=== PATIENT | female | born 1980 | race Caucasian/White ===

== ENCOUNTER 2021-05-19 15:06 | Outpatient (REF) | payer OTHER, SELFPAY ==
[2021-05-19 16:58] LABS: Binax Internal Control QC Valid; Binax Lot number: 9864; Binax Now Covid-19 Ag Negative (Negative)
== END 2021-05-19 15:07 | disposition home or self-care (01) ==
LOC: HO.LAB 15:06
PROVIDERS: Visit Provider Internal Medicine
DX: Z20.822 Contact with and (suspected) exposure to COVID-19 (principal)
CPT/HCPCS: 36415; C9803

== ENCOUNTER 2025-02-18 11:05 | Outpatient (AMB) | payer OTHER, SELFPAY ==
--- NOTE | 2025-02-18 11:41 | A.OFFVIS_ITS ---
Intake Visit Reasons: 6m Allergies No Known Allergies Allergy (Verified 02/18/25 11:41) Medication List - Last Reconciled 02/18/25 by Jo Tang CNP levetiracetam 500 mg PO BID sumatriptan succinate mg PO topiramate 25 mg PO BID HPI Comments Details: 44-year-old woman migraine and seizure disorder, who provided her own history st ating that she was diagnosed with hydrocephalus in [place] in 2006 that was treated with a CHILD DAY CARE PROVIDER shunt. Apparently there were many complications leading to infection and shunt was revised multiple times. She was so-so. She had one seizure last month. She got feeling of weakness in legs and arms, and passed out and fell. (She says seizures generally start with feeling of weakness and she is able to sit before it happens, but was unable to sit in time during this episode). Her daughter (who is a nurse) was with her. She came to about 5 minutes later. Speech was slightly confused and she was tired after. No shaking or convulsions noted. No tongue bite or incontinence. She denies any missed doses of medication. Her last seizure was about 3 years ago. She had headache at the time. Headaches were happening about 2-3x/week with photophobia, sonophobia, and nausea. No vomiting. Sleep was up and down. She had some stress. She has 3 children, a 21-year-old daughter (nurse), 19-year-son son, and 8-year-old daughter with autism. [facility] Medical History (Updated 02/18/25 @ 11:44 by Jo Tang CNP) Paresthesia of skin Migraine Seizure disorder Hydrocephalus Surgical History (Updated 12/26/24 @ 09:30 by Raquel Brewer [facility]) S/P CHILD DAY CARE PROVIDER shunt Review of Systems Const Denies chills, Denies daytime sleepiness, Denies difficulty sleeping, Denies fatigue, Denies fever(s), Denies frequent falls, Reports headache(s), Denies increased appetite, Denies poor appetite, Denies snoring, Denies weakness, Denies weight gain and Denies weight loss Eyes Denies loss of vision ENT Denies vertigo, Denies dizziness and Reports headache(s) Card Denies chest pain at rest, Denies chest pain with activity, Denies syncope, Denies leg edema and Denies palpitations Resp Denies snoring GI Denies constipation, Denies heartburn, Denies diarrhea and Denies nausea Denies urinary frequency, Denies urinary incontinence and Denies urinary urgency Musc Denies abnormal gait, Reports numbness and Reports tingling Skin/Breast Denies dry skin and Denies rash Neuro Denies abnormal gait, Denies vertigo, Denies dizziness, Denies syncope, Denies frequent falls, Reports headache(s), Denies lack of coordination, Denies loss of vision, Denies memory loss, Reports numbness, Denies restless legs, Denies seizure-like activity, Reports tingling, Denies paresthesias, Denies tremor(s) and Denies weakness Psych Denies anxiety, Denies depression, Denies auditory hallucinations, Denies memory loss, Denies visual hallucinations and Denies suicidal ideation Endo Denies fatigue and Denies palpitations Physical Exam Const Other: General Appearance:? normal, in no acute distress. Skin:? no rashes, no significant birthmarks. Heart:? S1, S2 normal, no murmurs. Lungs:? clear anteriorly and posteriorly. Extremities:? no edema. Psych:? alert, oriented, cognitive function intact, cooperative with exam. Neuro Other: Mental Status:?Normal attention, orientation, memory and affect.? Cranial Nerves:?Pupils are equal, round and reactive to light. External occular muscles are intact. Visual farley are full. Face is symmetrical. Facial sensations are normal. Tongue is midline. Palate elevates symmetrically. Shoulder shrugging is normal. Hearing to bedside conversation is normal. Sensory Exam:?....? Coordination:?No ataxia,?no titubation.? Gait Exam: Within normal limits. Extrapyramidal System:?No tremor, rigidity with normal facial expressions.? Pronator Drift:?Not present.? Involuntary Movements:?No tremors seen.? Speech:?Normal.? Results Reviewed Results Reviewed: NCV/EMG RTUE 01/20/21: normal EEG at office in October 2019: WNL CT brain WO at [facility] [place]: s/p craniotomy, s/p shunting, Slit ventricles EEG at office in Aug 2020: WNL. Assessment & Plan Assessment & Plan (1) Seizure disorder: Code(s): G40.909 - Epilepsy, unspecified, not intractable, without status epilepticus Category: Medical Plan: Continue levetiracetam 500mg 1 tablet twice a day. She was educated on the importance of medication compliance and risk associated with missed doses, including seizures. EEG ordered. (2) Migraine: Code(s): G43.909 - Migraine, unspecified, not intractable, without status migrainosus Category: Medical Qualifiers: Migraine type: unspecified Status migrainosus presence: without status migrainosus Intractability: not intractable Qualified Code(s): G43.909 - Migraine, unspecified, not intractable, without status migrainosus Plan: Increase topiramate 50mg 1 tablet twice a day. Continue sumatriptan 50mg 1 tablet as needed for migraine. Orders: Orders EEG electroencephalogram Today G40.909 - Epilepsy, unspecified, not intractable, without status epilepticus Medications: New topiramate 50 mg PO BID 180 tabs 1RF 90 days Coding Level of Care Code Est Pt Level 4 (25993) Diagnoses Seizure disorder G40.909 Migraine without status migrainosus, not intractable, unspecified migraine type G43.909 Migraine type: unspecified Status migrainosus presence: without status migrainosus Intractability: not intractable
== END 2025-02-18 12:07 | disposition home or self-care (01) ==
PROVIDERS: PCP Internal Medicine; Visit Provider Registered Nurse
DX: G40.909 Epilepsy, unspecified, not intractable, without status epilepticus (principal); G43.909 Migraine, unspecified, not intractable, without status migrainosus
CPT/HCPCS: 99214

== ENCOUNTER → 2025-02-18 11:05 | Outpatient (BNVA) | payer OTHER, SELFPAY | PROVIDERS: PCP Internal Medicine; Visit Provider Registered Nurse | DX: G40.909 Epilepsy, unspecified, not intractable, without status epilepticus (principal); G43.909 Migraine, unspecified, not intractable, without status migrainosus | CPT/HCPCS: 99212 ==

== ENCOUNTER 2025-03-06 10:35 | Outpatient (REF) | payer OTHER, SELFPAY ==
--- NOTE | 2025-03-06 12:53 | EEG_ITS ---
Reason for Exam: G40.909 Epilepsy Roomed Performed: 1 st floor History: History taken from office note 44-year-old woman migraine and seizure disorder, who provided her own history stating that she was diagnosed with hydrocephalus in [place] in 2006 that was treated with a INCIDENT RESPONSE ANALYST shunt. Apparently there were many complications leading to infection and shunt was revised multiple times.She was so-so. She had one seizure last month. She got feeling of weakness in legs and arms, and passed out and fell. (She says seizures generally start with feeling of weakness and she is able to sit before it happens, but was unable to sit in time during this episode). Her daughter (who is a nurse) was with her. She came to about 5 minutes later. Speech was slightly confused and she was tired after. No shaking or convulsions noted. No tongue bite or incontinence. She denies any missed doses of medication. Her last seizure was about 3 years ago. She had headache at the time. Headaches were happening about 2-3x/week with photophobia, sonophobia, and nausea. No vomiting. Sleep was up and down. She had some stress. Medication:levetiracetam, sumatriptan succinate, topiramate Technical description: Photic stimulation: Completed Hyperventilation: Performed Behavioral state: Cooperative State of Consciousness: awake Skull defect:no Sedation:no Handedness: Right Duration of study: 30 min 08 sec Description: This is a 16 channel EEG with an EKG lead. Patient is reported awake during the tracing. Background EEG rhythm is 12-14 hertz 5-50 microvolt posteriorly lower amplitude fast anteriorly] with no obvious asymmetry or paroxysmal tendency. Photic stimulation does not produce any significant driving. Hyperventilation is is unremarkable]. No sharp waves, spikes, asymmetric activity, or paroxysmal activity noted. Cardiac lead does not reveal any significant abnormality. Impression: Unremarkable EEG. MTDD
== END 2025-03-06 10:36 | disposition home or self-care (01) ==
LOC: HO.NEURO 10:35
PROVIDERS: PCP Internal Medicine; Referring Provider Registered Nurse; Visit Provider Registered Nurse
DX: G40.909 Epilepsy, unspecified, not intractable, without status epilepticus (principal)
CPT/HCPCS: 95816

== ENCOUNTER → 2025-03-06 12:53 | Outpatient (BNV) | payer OTHER, SELFPAY | PROVIDERS: PCP Internal Medicine; Referring Provider Registered Nurse; Visit Provider Psychiatry & Neurology Neurology | DX: G40.909 Epilepsy, unspecified, not intractable, without status epilepticus (principal) | CPT/HCPCS: 95816 ==

== ENCOUNTER 2025-03-25 15:08 | Outpatient (AMB) | payer OTHER, SELFPAY ==
--- NOTE | 2025-03-25 15:10 | A.OFFVIS_ITS ---
Intake Visit Reasons: AFTER EEG Allergies No Known Allergies Allergy (Verified 03/25/25 15:15) Medication List - Last Reconciled 03/25/25 by Jo Tang CNP levetiracetam 500 mg PO BID sumatriptan succinate mg PO topiramate 50 mg PO BID 90 days HPI Comments Details: 44-year-old woman migraine and seizure disorder, who provided her own history stating that she was diagnosed with hydrocephalus in [place] in 2006 that was treated with a REAL ESTATE UNDERWRITER shunt. Apparently there were many complications leading to infection and shunt was revised multiple times. She had one spell in 01/2025 where she got feeling of weakness in legs and arms, and she passed out and fell. She also had headache at the time. (She says seizures generally start with feeling of weakness and she is able to sit before it happens, but was unable to sit in time during this episode). Her daughter (who is a nurse) was with her. She came to about 5 minutes later. Speech was s lightly confused and she was tired after. No shaking or convulsions noted. No tongue bite or incontinence. Prior to this, last seizure was in 2021. She was doing okay. No further spells. Headaches were better and less frequent with increased dose of topiramate. She was getting headache about 1-2x/week with photophobia, sonophobia, dizziness, and nausea. Sumatriptan as needed helped. No falls. Sleep was okay. [facility] Medical History (Updated 02/18/25 @ 11:44 by Jo Tang CNP) Paresthesia of skin Migraine Seizure disorder Hydrocephalus Surgical History (Updated 12/26/24 @ 09:30 by Raquel Brewer CMA) S/P REAL ESTATE UNDERWRITER shunt Review of Systems Const Denies chills, Denies daytime sleepiness, Denies difficulty sleeping, Denies fatigue, Denies fever(s), Denies frequent falls, Reports headache(s), Denies increased appetite, Denies poor appetite, Denies snoring, Denies weakness, Denies weight gain and Denies weight loss Eyes Denies loss of vision ENT Denies vertigo, Denies dizziness and Reports headache(s) Card Denies chest pain at rest, Denies chest pain with activity, Denies syncope, Denies leg edema and Denies palpitations Resp Denies snoring GI Denies constipation, Denies heartburn, Denies diarrhea and Denies nausea Denies urinary frequency, Denies urinary incontinence and Denies urinary urgency Musc Denies abnormal gait, Reports numbness and Reports tingling Skin/Breast Denies dry skin and Denies rash Neuro Denies abnormal gait, Denies vertigo, Denies dizziness, Denies syncope, Denies frequent falls, Reports headache(s), Denies lack of coordination, Denies loss of vision, Denies memory loss, Reports numbness, Denies restless legs, Denies seizure-like activity, Reports tingling, Denies paresthesias, Denies tremor(s) and Denies weakness Psych Denies anxiety, Denies depression, Denies auditory hallucinations, Denies memory loss, Denies visual hallucinations and Denies suicidal ideation Endo Denies fatigue and Denies palpitations Physical Exam Const Other: General Appearance:? normal, in no acute distress. Skin:? no rashes, no significant birthmarks. Heart:? S1, S2 normal, no murmurs. Lungs:? clear anteriorly and posteriorly. Extremities:? no edema. Psych:? alert, oriented, cognitive function intact, cooperative with exam. Neuro Other: Mental Status:?Normal attention, orientation, memory and affect.? Cranial Nerves:?Pupils are equal, round and reactive to light. External occular muscles are intact. Visual farley are full. Face is symmetrical. Facial sensations are normal. Tongue is midline. Palate elevates symmetrically. Shoulder shrugging is normal. Hearing to bedside conversation is normal. Sensory Exam:?....? Coordination:?No ataxia,?no titubation.? Gait Exam: Within normal limits. Extrapyramidal System:?No tremor, rigidity with normal facial expressions.? Pronator Drift:?Not present.? Involuntary Movements:?No tremors seen.? Speech:?Normal.? Results Reviewed Results Reviewed: [address] [address] Electroencephalogram Report Signed Patient: Carol Ann Olvera MR#: [id number] : 1980 Acct:[id number] Age/Sex: 44 / F ADM Date: 03/06/25 Loc: [facility].NEURO Attending Dr: Jo Tang CNP Ordering Physician: Jo Tang CNP Date of Service: 03/06/25 Procedure(s): EEG Routine Accession Number(s): [id number] cc: Orly Cueva MD~ Reason for Exam: G40.909 - Epilepsy, unspecified, not intractable, without status epilept... Reason for Exam: G40.909 Epilepsy Roomed Performed: 1 st floor History: History taken from office note 44-year-old woman migraine and seizure disorder, who provided her own history stating that she was diagnosed with hydrocephalus in [place] in 2006 that was treated with a REAL ESTATE UNDERWRITER shunt. Apparently there were many complications leading to infection and shunt was revised multiple times.She was so-so. She had one seizure last month. She got feeling of weakness in legs and arms, and passed out and fell. (She says seizures generally start with feeling of weakness and she is able to sit before it happens, but was unable to sit in time during this episode). Her daughter (who is a nurse) was with her. She came to about 5 minutes later. Speech was slightly confused and she was tired after. No shaking or convulsions noted. No tongue bite or incontinence. She denies any missed doses of medication. Her last seizure was about 3 years ago. She had headache at the time. Headaches were happening about 2-3x/week with photophobia, sonophobia, and nausea. No vomiting. Sleep was up and down. She had some stress. Medication:levetiracetam, sumatriptan succinate, topiramate Technical description: Photic stimulation: Completed Hyperventilation: Performed Behavioral state: Cooperative State of Consciousness: awake Skull defect:no Sedation:no Handedness: Right Duration of study: 30 min 08 sec Description: This is a 16 channel EEG with an EKG lead. Patient is reported awake during the tracing. Background EEG rhythm is 12-14 hertz 5-50 microvolt posteriorly lower amplitude fast anteriorly] with no obvious asymmetry or paroxysmal tendency. Photic stimulation does not produce any significant driving. Hyperventilation is is unremarkable]. No sharp waves, spikes, asymmetric activity, or paroxysmal activity noted. Cardiac lead does not reveal any significant abnormality. Impression: Unremarkable EEG. Dictated By: Robert Villanueva MD Signed By: <Electronically signed by Robert Villanueva MD> 03/09/25 1421 --- NCV/EMG RTUE 01/20/21: normal EEG at office in October 2019: WNL CT brain WO at [facility] [place] in October 2019: s/p craniotomy, s/p shunting, Slit ventricles EEG at office in Aug 2020: WNL. Assessment & Plan Assessment & Plan (1) Seizure disorder: Code(s): G40.909 - Epilepsy, unspecified, not intractable, without status epilepticus Category: Medical Plan: EEG results reviewed. Continue levetiracetam 500mg 1 tablet twice a day. She was educated on the importance of medication compliance and risk associated with missed doses, including seizures. (2) Migraine: Code(s): G43.909 - Migraine, unspecified, not intractable, without status migrainosus Category: Medical Qualifiers: Migraine type: unspecified Status migrainosus presence: without status migrainosus Intractability: not intractable Qualified Code(s): G43.909 - Migraine, unspecified, not intractable, without status migrainosus Plan: Continue topiramate 50mg 1 tablet twice a day. Continue sumatriptan 50mg 1 tablet as needed for migraine. Start ondansetron 4mg 1 tablet as needed for nausea/vomiting, use/side effects reviewed. Medications: New ondansetron 4 mg PO DAILY PRN 10 tabs 5RF nausea and vomiting 30 days Coding Level of Care Code Est Pt Level 4 (01345) Diagnoses Seizure disorder G40.909 Migraine without status migrainosus, not intractable, unspecified migraine type G43.909 Migraine type: unspecified Status migrainosus presence: without status migrainosus Intractability: not intractable
== END 2025-03-25 15:26 | disposition home or self-care (01) ==
LOC: HO.HSM 15:09
PROVIDERS: PCP Internal Medicine; Visit Provider Registered Nurse
DX: G40.909 Epilepsy, unspecified, not intractable, without status epilepticus (principal); G43.909 Migraine, unspecified, not intractable, without status migrainosus
CPT/HCPCS: 99214

== ENCOUNTER → 2025-03-25 15:08 | Outpatient (BNVA) | payer OTHER, SELFPAY | PROVIDERS: PCP Internal Medicine; Visit Provider Registered Nurse | DX: G43.909 Migraine, unspecified, not intractable, without status migrainosus (principal); G40.909 Epilepsy, unspecified, not intractable, without status epilepticus | CPT/HCPCS: 99212 ==